=== PATIENT | female | born 1980 | race Caucasian/White ===

== ENCOUNTER 2016-10-11 12:32 | Outpatient (CLI) | payer BC | END 2016-10-11 12:33 | disposition home or self-care (01) | DX: Z36 Encounter for antenatal screening of mother (principal) ==

== ENCOUNTER 2017-01-04 12:09 | Outpatient (CLI) | payer OTHER, BC | END 2017-01-04 12:35 | disposition home or self-care (01) | DX: Z34.83 Encounter for supervision of other normal pregnancy, third trimester (principal); V43.52XA Car driver injured in collision with other type car in traffic accident, initial encounter ==

== ENCOUNTER 2017-01-15 09:31 | Outpatient (CLI) | payer BC | END 2017-01-15 10:35 | disposition home or self-care (01) | DX: Z34.83 Encounter for supervision of other normal pregnancy, third trimester (principal) ==

== ENCOUNTER 2017-01-22 16:50 | Outpatient (CLI) | payer BC | END 2017-01-22 16:51 | disposition home or self-care (01) | LOC: LAB.R 16:50 | PROVIDERS: ATTEND Nurse Practitioner Obstetrics & Gynecology | DX: Z36 Encounter for antenatal screening of mother (principal) | CPT/HCPCS: 87081 ==

== ENCOUNTER 2017-02-22 16:41 | Inpatient (IN) | payer BC ==
[2017-02-22] MEDS ORDERED: SODIUM CHLORIDE FLUSH 0.9% 10 ML SYRINGE IVP PRN (18:42)
[2017-02-22] MEDS ORDERED: SODIUM CHLORIDE FLUSH 0.9% 10 ML SYRINGE IVP ONE (18:44)
[2017-02-22] MEDS ORDERED: LACTATED RINGERS 1,000 ML IV SCH (19:00)
[2017-02-22] MEDS ORDERED: fentaNYL 100 MCG/2 ML VIAL IVP PRN (19:00)
[2017-02-22 19:10] LABS: BASOPHILS % (AUTO) 0.3 %; EOSINOPHILS % (AUTO) 0.2 %; HCT - HEMATOCRIT 40.8 % (37.0-47.0); LYMPHOCYTES # (AUTO) 1.5 10^3/uL (1.5-3.5); LYMPHOCYTES % (AUTO) 10.2 %; MEAN CORPUSCULAR HEMOGLOBIN 33.3 pg (27.0-31.0); MEAN CORPUSCULAR HGB CONC 34.4 g/dL (32.0-36.0); MEAN PLATELET VOLUME 9.6 fL (7.9-10.8); MONOCYTES # (AUTO) 0.6 10^3/uL (0.0-1.0); NEUTROPHILS # (AUTO) 12.9 10^3/uL (1.5-6.6); NEUTROPHILS % (AUTO) 85.3 %; RED BLOOD COUNT 4.21 10^6/uL (4.20-5.40); RED CELL DISTRIBUTION WIDTH 13.3 % (12.0-15.0); UNCORRECTED WHITE BLOOD COUNT 15.1 x10^3/uL; WHITE BLOOD COUNT 15.1 x10^3/uL (4.8-10.8)
[2017-02-22] MEDS ORDERED: fentaNYL 100 MCG/2 ML VIAL ONE (19:23)
--- NOTE | 2017-02-22 19:44 | HISTORY & PHYSICAL EXAMINATION ---
Admit History - Instructions [place]/Slash: -Left hand click circles element as positive or present. -Right hand click slashes element as negative or not present. - Visit Reason Visit Reason: Contractions - Care: positive: [facility] Risk/History: positive: None Complications This : positive: None Smoking Status: Former smoker - Mother's Labs Mother's Blood Type: positive: O Mother's RH: positive: Positive GBS: positive: Group B Step Negative Rubella Status: positive: Immune - Other Maternal History Other Maternal History: HPI: This 36yo at 39.6wks gestation by L=9.4wk U/S who presents for contractions. Upon evaluation she was noted to be 3/75/-2 with intact membranes. Recheck SVE 1 hour later revealed 4/100/-1, bulging BOW. She was admitted to L&D for management. Dating criteria: 1.) LMP 05/21/2016 2.) First ultrasound 07/31/2016 @ 9.4wks - agrees 3.) First exam 07/31/2016 @ 9.4wks -agrees 4.) Serial exams @ 15-39wks -agrees OB History: G1: 05/11/2015 40wks, 12 hr labor, male, natural. 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 Pap reverted to normal. 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 Surgical Hx: Tonsillectomy 2007, Spinal fusion for scoliosis (1999) Social Hx: Former smoker <10 years, quit smoke >1year ago Family Hx: Diabetes - Father; Depression-maternal aunt and maternal uncle; Alcohol or drug problem - mother, father, paternal aunt, maternal uncle Meds: PNV, Acyclovir 400mg TID Allergies: NKA labs: 08/14/2016 Blood type 0 pos, antibody neg Hgb 13.7, Hct 41.1, PLT 192 Rubella immune HIV non-reactive GC/CT ne07/31/2016 Hep B neg RPR non-reactive 28wk labs: 11/28/2016: Hgb 12.9 Antibody neg 1 hour GTT 86 Tdap 01/01/2017 Ultrasounds: 10/15/2016 FAS WNL except echogenic fochi in left ventricle. Placenta posterior, no previa, SAMARA 13.1 Assessment: 36yo @ 39.6wks gestation by L=9.4wk U/S Active labor Desires natural labor Desires future fertility Plan: Admit to L&D Intermittent monitoring Activity and nutrition as indicated; encouraged position changes and jacuzzi Anticipate spontaneous vaginal delivery Meds/Allgy - Home Medications Home Medications: Ambulatory Orders Medication Instructions Recorded Confirmed Erythromycin Base [Wilver-Tab] 500 mg PO TID #21 tablet. 10/31/14 - Allergies Allergies/Adverse Reactions: Allergies Allergy/AdvReac Type Severity Reaction Status Date / Time No Known Drug Allergies Allergy Verified 05/11/15 10:57 Physical - Abdominal Exam Vital Signs: Temp Pulse Resp BP Pulse Ox 36.8 C 100 18 120/74 97 02/22/17 17:00 02/22/17 17:00 02/22/17 17:00 02/22/17 17:00 02/22/17 17:00
--- NOTE | 2017-02-22 20:13 | PROVIDER PROGRESS NOTE ---
Labor Progress Note - Instructions [place]/Slash: -Left hand click circles element as positive or present. -Right hand click slashes element as negative or not present. - Uterine Monitoring Uterine Monitoring Mode: positive: External toco Contraction Frequency (min/apart): 2-3 Contraction Intensity: positive: Strong Uterine Resting Tone: positive: Soft - Monitoring Monitor Mode: positive: External ultrasound Heart Rate Variability: positive: Moderate (6-25 bmp) Accelerations: positive: Present, 15x15 Decelerations: positive: None Strip Review: positive: Category I - Vaginal Exam Dilation (in cm): 6 Effacement (%): 100 Station: positive: 0 Cervical Position: positive: Anterior - Labor Progress Note Labor Progress Note/Additional Text: S: Pt feeling more intense contractions. Wanting more for pain management. and mother supportive at bedside. O: SVE 6/100/0, anterior, stretchy. AROM 0800 moderate meconium.
[2017-02-22] MEDS ORDERED: LIDOCAINE 1% 50 ML MDV ONE (20:23)
[2017-02-22] MEDS ORDERED: OXYTOCIN/LACTATED RINGERS 250 ML IV ONE ×2 (20:29→20:52)
[2017-02-22] MEDS ORDERED: HYDROCORTISONE/PRAMOXINE 10 GM PR PRN (20:52)
[2017-02-22] MEDS ORDERED: WITCH HAZEL/GLYCERIN 1 EACH MED..PAD TOP PRN (20:52)
--- NOTE | 2017-02-22 21:31 | DELIVERY NOTE ---
Delivery Note - Instructions [place]/Slash: -Left hand click circles element as positive or present. -Right hand click slashes element as negative or not present. - Labor Labor: positive: Spontaneous, Augmented by ARM - Delivery Method Delivery Method: positive: Spontaneous vaginal delivery - Presentation Presentation: positive: Vertex, STEPHANIE - left occiput anterior - Nuchal Cord Nuchal Cord: positive: None - Amniotic Fluid Description Amniotic Fluid Description: positive: Moderate meconium - Episiotomy Type Episiotomy Type: positive: None - Laceration Laceration: positive: 1st degree - Suture Suture Type: positive: Vicryl Suture Size: positive: 3-0 - Delivery Outcome Delivery Outcome: positive: Livebirth - : positive: Placed in direct skin contact with mother, Suctioned, Bulb syringe, Stimulated, Warmed, [place] used, Warmer used [place] sex: positive: Male - Cord Cord: positive: 3 vessels - Placenta Placenta: positive: Intact, Spontaneous - Estimated Blood Loss Estimated Blood Loss (in cc): 150 - Post Delivery Events Post Delivery Events: positive: No post delivery events - Delivery Comments (Free Text/Narrative) Delivery Comments (Free Text/Narrative): Labor: This 36yo @ 39.6wks by L=9.4wks presented at approximately 0430 in early labor. Cervix was 3/75/-1 and vertex. Patient was allowed to ambulate for 1 hour and then progressed to 4/100/0. FHR pattern demonstrated category I pattern. Pt given 1 dose of Fentanyl IV at 4cm. Precipitous labor course. AROM occurred @ approximately 0811 and was noted to be a moderate amount of moderate meconium. Dr. Grewal manager stylist was called to be present for delivery. Pt progressed from 6cm dilated to c/c/+2 in approximately 13 minutes. Normal SVB of a viable male . No Nuchal. Apgars 8/9 @ 4 on 02/22/2017. The was placed on maternal abdomen, stimulated, dried, and placed skin to skin. The umbilical cord was doubly clamped and cut by patient's mother. Infant was then taken to the warmer for evaluation and Dr. Grewal was present immediately after. Cord blood was obtained. Placenta delivered spontaneously and intact at 2026. 3VC. EBL 150mL and fundus was noted to be firm. Uterine fundus remained firm with no excessive bleeding. The perineum, vagina, and cervix were inspected and found to have first degree laceration which was repaired using 3-[address]-1 needle in usual fashion under sterile conditions. Vaginal examination following the reapir was done. Tissues well approximated. initiated. Family bonding well. Both mother and baby are in stable condition.
[2017-02-22] MEDS: IBUPROFEN 800 MG TABLET PO SCH (21:52)
[2017-02-22] MEDS: DOCUSATE SODIUM 100 MG CAPSULE PO SCH (21:53)
[2017-02-22] MEDS ORDERED: SODIUM CHLORIDE FLUSH 0.9% 10 ML SYRINGE IVP SCH (22:00)
[2017-02-22] MEDS: ACETAMINOPHEN 500 MG TABLET PO SCH (23:00)
[2017-02-23] MEDS: IBUPROFEN 800 MG TABLET PO SCH ×4 (04:01→20:16)
[2017-02-23] MEDS: ACETAMINOPHEN 500 MG TABLET PO SCH ×2 (06:51→15:00)
--- NOTE | 2017-02-23 08:43 | PROVIDER PROGRESS NOTE ---
Subjective - Subjective Subjective: S: Bonding well with baby. without difficulty. Perineum comfortable. Pain well controlled with ibuprofen. Bleeding decreased and is light. O: Heart RRR w/o M/R/G, lungs CTAB. Abdomen soft and nontender, fundus firm at U -1. Bilateral LE's no edema. Perineum intact and repair without edema. A: 36yo -->P2 PPD#1 s/p of viable female 1st degree laceration GBS neg P: Continue routine pp care and meds. Plan discharge home tomorrow. Objective - Vital Signs/Intake & Output Vital Signs: Vital Signs x48h Temp Pulse Resp BP 02/23/17 02:07 35.9 C L 86 18 104/62 Intake & Output: Intake & Output 02/20/17 02/21/17 02/22/17 02/23/17 23:59 23:59 23:59 23:59 Intake Total 500 Output Total 150 Balance 350 - Lab Results Fish Bones: 02/22/17 18:45 Other Labs: Lab Results x24hrs 02/22/17 Range/Units 18:45 WBC 15.1 H (4.8-10.8) x10^3/uL RBC 4.21 (4.20-5.40) 10^6/uL Hgb 14.0 (12.0-16.0) g/dL Hct 40.8 (37.0-47.0) % MCV 97.0 (81.0-99.0) fL MCH 33.3 H (27.0-31.0) pg MCHC 34.4 (32.0-36.0) g/dL RDW 13.3 (12.0-15.0) % Plt Count 129 L (130-450) 10^3/uL MPV 9.6 (7.9-10.8) fL Neut # 12.9 H (1.5-6.6) 10^3/uL Lymph # 1.5 (1.5-3.5) 10^3/uL [place] # 0.6 (0.0-1.0) 10^3/uL Eos # 0.0 (0.0-0.7) 10^3/uL Baso # 0.0 (0.0-0.1) 10^3/uL Absolute Nucleated RBC 0.00 x10^3/uL Nucleated RBCs 0.0 /100WBC
[2017-02-23] MEDS: DOCUSATE SODIUM 100 MG CAPSULE PO SCH ×2 (09:04→20:16)
--- NOTE | 2017-02-23 17:31 | Discharge Plan ---
Discharge Plan Disposition: 01 Home, Self Care Condition: Good Diet: Regular Activity Restrictions: No Restrictions Shower Restrictions: No Driving Restrictions: No Weight Bearing: Full Weight Additional Instructions or Follow Up instructions: S: Pt has decided she would like to go home at the 24 hour post-delivery siva. Reports Dr. Grewal, pharmacy service associate has agreed that it is also acceptable to discharge baby at 24 hours . Pt doing well and feeling well. Excited to be able to go home. O: Abdomen soft and nontender, fundus firm at U-2. Bilateral LE's no edema. Perineum intact, repair without edema. A: 36yo -->P2 s/p TSVD of viable male 1st degree laceration GBS negative P: Reviewed self care and warning signs. Rx handwritten for ibuprofen 800mg sig 1 tab PO q8 hrs PRN pain #60 with 1 refill and Colace 100mg 1 tab PO bid PRN constipation #60 with 1 refill. Pt planning Mirena IUD at 6 weeks pp visit. She verbalized understanding and agrees to above plan. Denies further questions or concerns. Pt to follow up with myself at [facility] in 6 weeks. No Smoking: If you smoke, Please STOP! Call for help. Follow-up with: Anny Aiken CNM, NETTE [Provider Admit Priv/Credential] -
[2017-02-23 20:20] VITALS: BP 109/69
--- NOTE | 2017-02-23 21:00 | Labor Flowsheet ---
Labor Flowsheet Datetime Report Generated by CPN: 02/23/2017 21:00 Datetime: 02/23/2017 20:19 VITAL SIGNS NBP Sys/Marlene/Mean (mmHg): 109 : 69 : 79 Pulse: 75 COMMUNICATION LaborFlag: Labor Datetime: 02/23/2017 20:18 Temperature (F): 98.8 Temperature (C): 37.1 Temperature (C): 37.1 Datetime: 02/22/2017 20:24 Monitor Interventions for FHR: Ultrasound Adjusted Actions for Decelerations: of a viable male over a 1st perineal laceration. Infan t to Mom's abd, dried and stimulated with spontaneous cry. Double cord around the right lower leg of baby. Datetime: 02/22/2017 20:23 VAGINAL EXAM Dilatation (cm): 10.0 Effacement (%): 100 Exam by: Anny PRICEM Datetime: 02/22/2017 20:15 Stage of : Labor Pattern: Normal: <= 5 Contractions in 10 Minutes Station: 1 Membrane Status: Meconium Datetime: 02/22/2017 20:03 Membranes Ruptured Date/Time: 02/22/2017 20:03 Membranes Rupture Method: Artificial Amniotic Fluid Color: Heavy Meconium Amniotic Fluid Amount: Small Amniotic Fluid Odor: Normal Vaginal Bleeding: Normal Show Datetime: 02/22/2017 20:00 Monitor Interventions for UA: [place] Adjusted Category: Category I Datetime: 02/22/2017 19:30 UTERINE ACTIVITY Monitor Mode: External Frequency (min): 1.5-3.5 Quality: Strong Duration (sec): 60-90 Resting Tone (Palpate): Relaxed ASSESSMENT A Monitor Mode: External US FHR Baseline Rate : 145 FHR Baseline Changes: No Baseline Change Variability: Moderate 6-25 bpm Accelerations: 15X15 Decelerations: None Datetime: 02/22/2017 19:24 MEDICATIONS Analgesics/Sedatives: Fentanyl (mcg) @
== END 2017-02-23 20:55 | disposition home or self-care (01) | DRG 774 ==
LOC: WFO 16:41 → OB 16:45 → WFO 18:34 → OB 18:35
PROVIDERS: ADMIT Nurse Practitioner Obstetrics & Gynecology; ATTEND Nurse Practitioner Obstetrics & Gynecology
PROC: 10E0XZZ Delivery of Products of Conception, External Approach (ICD-10-PCS; principal; 2017-02-22)
PROC: 10907ZC Drainage of Amniotic Fluid, Therapeutic from Products of Conception, Via Natural or Artificial Opening (ICD-10-PCS; 2017-02-22)
PROC: 0HQ9XZZ Repair Perineum Skin, External Approach (ICD-10-PCS; 2017-02-22)
DX: O98.32 Other infections with a predominantly sexual mode of transmission complicating childbirth (principal); A60.00 Herpesviral infection of urogenital system, unspecified; O70.0 First degree perineal laceration during delivery; O77.0 Labor and delivery complicated by meconium in amniotic fluid; Z3A.39 39 weeks gestation of pregnancy; Z37.0 Single live birth; Z87.891 Personal history of nicotine dependence; Z98.1 Arthrodesis status; Z79.899 Other long term (current) drug therapy
CPT/HCPCS: 85025; 99213

== ENCOUNTER 2017-05-01 14:19 | Outpatient (CLI) | payer BC ==
[2017-05-01 19:39] LABS: BILIRUBIN,DIRECT 0.1 mg/dL (0.1-0.5); BILIRUBIN,TOTAL 0.8 mg/dL (0.2-1.0); TOTAL PROTEIN 7.4 g/dL (6.7-8.2)
== END 2017-05-01 14:20 | disposition home or self-care (01) ==
LOC: LAB.WCP 14:19
PROVIDERS: ATTEND Physician Assistant Medical
DX: R74.8 Abnormal levels of other serum enzymes (principal)
CPT/HCPCS: 36415; 80076; 82977; 83540; 84466

== ENCOUNTER 2017-05-02 09:10 | Outpatient (CLI) | payer BC ==
--- NOTE | 2017-05-02 10:24 | Ultrasound Report ---
RIGHT UPPER QUADRANT ULTRASOUND: 05/02/2017 CLINICAL INDICATION: Elevated liver enzymes. TECHNIQUE: Real-time scanning was performed with printing sales representative static images obtained. FINDINGS: The liver measures 15.5 cm. Hepatic echotexture is normal. No intrahepatic biliary dilat ation or focal parenchymal lesion is present. The common bile duct measures 4 mm. The gallbladder i s normal. The right kidney measures 10.1 cm, and demonstrates no hydronephrosis. No free fluid is p resent. IMPRESSION: NORMAL RIGHT UPPER QUADRANT ULTRASOUND. JOB #: [id number] EXT JOB #:[id number]
== END 2017-05-02 09:11 | disposition home or self-care (01) ==
LOC: DI 09:10
PROVIDERS: ATTEND Physician Assistant Medical
DX: R74.8 Abnormal levels of other serum enzymes (principal)
CPT/HCPCS: 76705

== ENCOUNTER 2020-06-07 13:55 | Outpatient (CLI) | payer OTHER | END 2020-06-07 13:56 | disposition home or self-care (01) | LOC: COV 13:55 | PROVIDERS: ATTEND Family Medicine | DX: M79.10 Myalgia, unspecified site (principal); R53.83 Other fatigue; R68.83 Chills (without fever); J02.9 Acute pharyngitis, unspecified; R19.7 Diarrhea, unspecified; R11.2 Nausea with vomiting, unspecified; Z20.828 Contact with and (suspected) exposure to other viral communicable diseases ==

== ENCOUNTER 2021-09-07 11:03 | Outpatient (CLI) | payer OTHER ==
[2021-09-07 18:40] LABS: BASOPHILS % (AUTO) 0.6 %; EOSINOPHILS # (AUTO) 0.1 10^3/uL (0.0-0.7); EOSINOPHILS % (AUTO) 0.9 %; HCT - HEMATOCRIT 43.2 % (37.0-47.0); LYMPHOCYTES # (AUTO) 1.7 10^3/uL (1.5-3.5); LYMPHOCYTES % (AUTO) 24.1 %; MEAN CORPUSCULAR HEMOGLOBIN 32.8 pg (27.0-31.0); MEAN CORPUSCULAR HGB CONC 34.7 g/dL (32.0-36.0); MEAN CORPUSCULAR VOLUME 94.5 fL (81.0-99.0); MEAN PLATELET VOLUME 12.3 fL (7.9-10.8); MONOCYTES # (AUTO) 0.3 10^3/uL (0.0-1.0); MONOCYTES % (AUTO) 3.6 %; NEUTROPHILS # (AUTO) 4.8 10^3/uL (1.5-6.6); NEUTROPHILS % (AUTO) 70.4 %; PLT - PLATELET COUNT 181 10^3/uL (130-450); RED BLOOD COUNT 4.57 10^6/uL (4.20-5.40); WHITE BLOOD COUNT 6.9 x10^3/uL (4.8-10.8)
[2021-09-07 19:00] LABS: ALBUMIN 4.6 g/dL (3.2-5.5); ALBUMIN/GLOBULIN RATIO 1.6 (1.0-2.2); ALKALINE PHOSPHATASE 51 IU/L (42-121); ALT ALANINE AMINOTRANSFERASE 21 IU/L (10-60); AST ASPARTATE AMINOTRANSFERASE 19 IU/L (10-42); BILIRUBIN,TOTAL 0.8 mg/dL (0.2-1.0); BUN - BLOOD UREA NITROGEN 14 mg/dL (6-20); CALCIUM 9.1 mg/dL (8.5-10.3); CARBON DIOXIDE - CO2 27 mmol/L (21-32); CHLORIDE 104 mmol/L (101-111); CHOLESTEROL 203 mg/dL; CREATININE 0.6 mg/dL (0.4-1.0); GFR - MDRD 111 (>89); GLUCOSE 88 mg/dL (70-100); HDL CHOLESTEROL 68 mg/dL; LDL CHOLESTEROL,CALCULATED 121 mg/dL; LDL/HDL RATIO 1.8 (<4.4); SODIUM 140 mmol/L (135-145); TOTAL PROTEIN 7.5 g/dL (6.7-8.2); TRIGLYCERIDES 72 mg/dL; VLDL CHOLESTEROL 14 mg/dL
[2021-09-07 19:09] LABS: THYROID STIMULATING HORMONE 2.13 uIU/mL (0.34-5.60)
== END 2021-09-07 23:59 | disposition home or self-care (01) ==
LOC: LAB.WCP 11:03
PROVIDERS: ATTEND Nurse Practitioner
DX: R53.83 Other fatigue (principal); Z13.220 Encounter for screening for lipoid disorders
CPT/HCPCS: 36415; 80053; 80061; 83721; 84443; 85025

== ENCOUNTER 2021-11-10 12:32 | Outpatient (CLI) | payer OTHER ==
--- NOTE | 2021-11-10 20:41 | Ultrasound Report ---
PROCEDURE: Pelvic w/Transvaginal INDICATIONS: IUD SURVEILLANCE TECHNIQUE: Real-time scanning was performed of the pelvic organs, with image documentation. Additional endovagi nal scanning was necessary due to incomplete visualization of the adnexal and endometrial structures by transabdominal scanning. COMPARISON: None. FINDINGS: Transabdominal scanning: Limited scanning through the kidneys shows no hydronephrosis. No pathologi c free abdominal or pelvic fluid. Small amount of pelvic free fluid in the posterior cul-de-sac, like ly physiologic in etiology. Endovaginal scanning: Uterus: Uterus is normal in size at 9.8 x 3.9 x 5.6 cm. Uterus is anteverted and homogeneous in ech otexture. No focal uterine lesions. The endometrium measures 3 mm in combined thickness. An intraute rine device is visualized within the endometrial cavity and appears appropriately positioned. Ovaries: Right ovary measures 2.8 x 2.3 x 2.0 cm with ovarian volume of 7 mL. Left ovary measures 3. 7 x 1.9 x 1.9 cm with ovarian volume of 7 mL. IMPRESSION: Unremarkable pelvic ultrasound. An intrauterine device is visualized in appropriate positioning withi n the endometrial canal. Reviewed by: Walter Jain MD on 11/10/2021 8:40 PM PST Approved by: Walter Jain MD on 11/10/2021 8:40 PM PST Station ID: [id number]
== END 2021-11-10 12:33 | disposition home or self-care (01) ==
LOC: DI 12:32
PROVIDERS: ATTEND Obstetrics & Gynecology
DX: Z30.431 Encounter for routine checking of intrauterine contraceptive device (principal)

== ENCOUNTER 2023-04-22 10:18 | Outpatient (CLI) | payer OTHER ==
--- NOTE | 2023-04-23 12:13 | Ultrasound Report ---
LIMITED ULTRASOUND OF LEFT BREAST: 04/22/2023 CLINICAL: Patient returns today to evaluate a focal asymmetry in the left breast. Comparison is made to exam dated: 03/20/2023 mammogram - [facility]. Color flow ultrasound of the left breast 2-3 o'clock region was performed on the areas of interest. Jimenez scale images of the real-time examination were reviewed. There is an oval simple cyst in the left breast at 3 o'clock posterior depth. This oval simple cyst is anechoic and hypoechoic with a well-defined boundary and posterior acoustic enhancement. This cor relates with mammography findings. Color flow imaging demonstrates that there is no vascularity pres ent. IMPRESSION: BENIGN There is no sonographic evidence of malignancy. The oval simple cyst in the left breast is benign. A 1 year screening mammogram is recommended. This exam was interpreted at Station ID: [id number]. Electronically Signed By: Katelynn cesar/:04/22/2023 17:10:58 Ultrasound BI-RADS: 2 Benign BI-RADS CATEGORY: (2) - 2 Mammogram [id number] 1 year screening LATERALITY: (B)
--- NOTE | 2023-04-23 12:13 | Mammography Report ---
UNILATERAL LEFT DIGITAL DIAGNOSTIC MAMMOGRAM 3D/2D WITH MEDIOLATERAL OBLIQUE: 04/22/2023 CLINICAL: Patient returns today to evaluate a focal asymmetry in the left breast. Comparison is made to exam dated: 03/20/2023 mammogram - [facility]. The left breast is extremely dense, which lowers the sensitivity of mammography (category d />75% gla ndular tissue). There is a focal asymmetry in the left breast at 3 o'clock posterior depth. This is seen in addition al views. No other significant masses or calcifications are seen in the breast. IMPRESSION: INCOMPLETE: NEEDS ADDITIONAL IMAGING EVALUATION The focal asymmetry in the left breast is indeterminate. A targeted ultrasound of the left breast is recommended and will be performed immediately following this exam. Based on Tyrer-Cuzick model (a risk assessment model), the patient's lifetime risk is 22.8% and her 1 0 year risk is 3.3%. If a patient has an elevated risk, a more comprehensive evaluation should be con sidered and/or a referral to a genetic counselor. The [place] [employer], [employer] di[employer], and NCCN Guidelines advise the consideration of Breast MRI as an adjunct to screening mammog leroy in patients whose "Lifetime risk to develop breast cancer" is 20% or higher. This exam was interpreted at Station ID: [id number]. NOTE: For mammograms, a report in lay terms will be sent to the patient. Approximately 15% of breast malignancies will not be visualized mammographically. In the management of a palpable breast mass, a negative mammogram must not discourage biopsy of a clinically suspicious lesion. Electronically Signed By: Katleynn Kaba M.D. lk/:04/22/2023 11:22:47 ACR BI-RADS Category 0: Incomplete 3340F PARENCHYMAL PATTERN: (VD) - The breast(s) demonstrate(s) extremely dense parenchyma, limiting the sen sitivity of mammography. BI-RADS CATEGORY: (0) - 0 Ultrasound [id number] Immediate follow-up LATERALITY: (B)
== END 2023-04-22 10:19 | disposition home or self-care (01) ==
LOC: DI 10:18
PROVIDERS: ATTEND Physician Assistant
DX: N60.02 Solitary cyst of left breast (principal)